=== PATIENT | female | born 1975 | race Two or more races ===

== ENCOUNTER 2016-11-25 18:11 | Inpatient (IN) | payer MEDICAID ==
[2016-11-25] MEDS ORDERED: IOPAMIDOL 300 (61%) 150 ML VIAL IV ONE (18:12)
[2016-11-25 20:15] LABS: SPECIFIC GRAVITY 1.015 (1.001-1.030); URINE BILIRUBIN NEGATIVE (NEGATIVE); URINE BLOOD 4+ (NEGATIVE); URINE GLUCOSE (UA) NEGATIVE (NEGATIVE); URINE LEUKOCYTE ESTERASE NEGATIVE (NEGATIVE); URINE NITRITE NEGATIVE (NEGATIVE); URINE PROTEIN NEGATIVE (NEGATIVE); URINE UROBILINOGEN NORMAL (0-1 mg/dl)
[2016-11-25 20:17] LABS: URINE APPEARANCE CLEAR; URINE COLOR STRAW
[2016-11-25 20:18] LABS: HCG,QUALITATIVE URINE NEGATIVE
[2016-11-25 20:21] LABS: URINE BACTERIA 0; URINE EPITHELIAL CELLS FEW /hpf; URINE RBC 30-40 /hpf; URINE WBC 0-1 /hpf
[2016-11-25] MEDS ORDERED: LACTATED RINGERS 1,000 ML ONE (20:34)
[2016-11-25] MEDS ORDERED: MORPHINE SULFATE 4 MG/ML SYRINGE ONE (20:34)
[2016-11-25 20:35] LABS: ABSOLUTE NEUTROPHIL COUNT 4.2 K/mm3 (1.8-7.7); BASO % 0.4 % (0.2-1.0); EOS # 0.1 (0.0-0.5); EOS % 1.7 % (0.9-2.9); HEMATOCRIT 26.9 % (37.0-47.0); HEMOGLOBIN 7.2 gm/l (12.0-16.0); IMM NEUT% 0.1 % (0-1); LYMPH # 2.8 (1.0-4.8); LYMPH % 37.3 % (15-45); MEAN CELL VOLUME 67.1 fl (81.0-99.0); MEAN CORPUSCULAR HGB CONC 26.8 g/dl (33.0-37.0); MEAN PLATELET VOLUME 9.1 fl (7.4-10.4); MONO # 0.3 (0.0-0.8); MONO % 4.4 % (4-12); NEUT % 56.1 % (43-75); PLATELET COUNT 479 K/mm3 (130-400); RED CELL DISTRIBUTION WIDTH 20.9 % (11.5-14.5)
[2016-11-25 20:52] LABS: ALB/GLOB RATIO 1.6 (>1.0); ALBUMIN 4.5 gm/dL (3.5-5.7); CALCIUM 9.5 mg/dL (8.6-10.3)
[2016-11-25 21:05] LABS: HYPOCHROMIA 1+; PLATELET ESTIMATE INCREASED (NORMAL)
--- NOTE | 2016-11-25 21:21 | CT ---
ABD/PELVIS W/ CON COMPARISON: None. HISTORY: Left lower quadrant pain with dysuria and hematuria. Recently diagnosed with uterine tumor. Technique: Intravenous injection contrast 125 mL Isovue 300. Using a [employer] Aquilion [address] scanner, images were obtained from the diaphragm to the floor the pelvis. An automated dose reduction technique was used to minimize patient radiation dose. Dose information: CTDIvol (mGy): 7.10 DLP(mGycm): 359.9 FINDINGS: Lung bases: Normal. Inferior mediastinum and heart: Normal. Liver: Normal. Gallbladder:Normal. Bile ducts: Normal. Pancreas: Normal. Spleen: Normal. Adrenal glands: Normal. Kidneys: Normal. Ureters: Normal Urinary bladder: Normal. Uterus and adnexa: Enlarged. Centrally located heterogeneously enhancing mass, 8.2 cm transverse by 6.7 cm anterior posterior by 7.6 cm craniocaudal. Blood vessels: Normal Lymph nodes: Normal Stomach: Normal Duodenum: Normal Small intestine: Normal Appendix: Normal Colon: Normal Abdominal wall and supporting musculature: Normal Bones: Normal IMPRESSION: 1. The uterus is enlarged by an 8.2 x 6.7 x 7.6 cm solid mass located centrally. Differential diagnosis giant leiomyoma versus sarcoma versus endometrial carcinoma. The report was sent to the emergency department operative medical record system 11/25/2016 at 21:22
[2016-11-25 21:28] LABS: INR 0.93; PROTHROMBIN TIME 9.8 SECONDS (9.3-11.4)
[2016-11-25] MEDS ORDERED: SODIUM CHLORIDE 0.9% 500 ML ONE (22:38)
[2016-11-25] MEDS ORDERED: BLOOD Y PLUMSET W/CASSETTE ONE (22:38)
[2016-11-25] MEDS ORDERED: SODIUM CHLORIDE 0.9% FLUSH 10 ML ONE (22:39)
[2016-11-25 23:18] VITALS: BMI 31.1
[2016-11-26] MEDS ORDERED: MAGNESIUM HYDROXIDE 30 ML UDCUP PO PRN (00:07)
[2016-11-26] MEDS ORDERED: ONDANSETRON 4 MG ODT TAB PO PRN (00:07)
[2016-11-26] MEDS ORDERED: MAG HYDROX/AL HYDROX/SIMETH 30 ML UDCUP PO PRN (00:07)
[2016-11-26] MEDS ORDERED: DIPHENHYDRAMINE HCL 25 MG CAPSULE PO PRN (00:07)
[2016-11-26] MEDS ORDERED: ACETAMINOPHEN 325 MG TABLET PO PRN (00:07)
[2016-11-26] MEDS ORDERED: DOCUSATE SODIUM 100 MG CAPSULE PO PRN (00:07)
[2016-11-26] MEDS ORDERED: BLISTEX LIPSTICK 1 EACH TP PRN (00:07)
[2016-11-26] MEDS ORDERED: MENTHOL/CETYLPYRD 1 EACH LOZENGE PO PRN (00:07)
[2016-11-26] MEDS ORDERED: MAGNESIUM HYDROXIDE/AL HYDROX 30 ML UDCUP PO PRN (00:07)
[2016-11-26] MEDS: IBUPROFEN 800 MG TABLET PO SCH ×2 (00:53→07:21)
[2016-11-26] MEDS: ESTROGENS CONJUGATED IV SCH ×2 (02:42→07:20)
[2016-11-26 07:34] LABS: HEMATOCRIT 32.7 % (37.0-47.0); HEMOGLOBIN 9.4 gm/l (12.0-16.0); MEAN CELL VOLUME 71.6 fl (81.0-99.0); MEAN CORPUSCULAR HEMOGLOBIN 20.6 pg (27.0-31.0); MEAN CORPUSCULAR HGB CONC 28.7 g/dl (33.0-37.0); RED CELL DISTRIBUTION WIDTH 22.2 % (11.5-14.5)
[2016-11-26 08:05] VITALS: BP 117/74
--- NOTE | 2016-11-26 08:40 | HP ---
Radha Noriega [id number] DATE OF ADMISSION: 11/25/2016 ADMISSION DIAGNOSES: 1. Anemia. 2. Fibroid uterus. HISTORY AND PHYSICAL: The patient is a 41-year-old female with history of heavy vaginal bleeding since March 2016. Patient states that she has regular periods monthly and these periods can last up to two weeks and have been heavy. Patient has been last having bleeding x2 weeks and therefore presented to the emergency department today. The patient had abdominal and pelvic CT scan performed which showed a enlarged uterus and adnexa. There is a centrally located heterogeneously enhancing mass 8.2 cm transverse by 6.7 cm anteroposterior by 7.6 cm craniocaudal. There is no lymphadenopathy or any other significant findings in this preliminary reading. The differential diagnosis include giant leiomyoma versus sarcoma versus endometrial carcinoma. Upon admission to the emergency room, patient was found to be anemic with a hemoglobin of 7.2, hematocrit of 26.9, MCV of 67.1. Patient states that she had previously been to [facility] for menorrhagia and had an ultrasound performed in July which did show enlarged uterus at that time. Patient was recommended for hysterectomy, however, subsequently did not have this done. 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 Patient has had five previous vaginal deliveries. PAST MEDICAL HISTORY: Patient denies any significant medical problems. PAST SURGICAL HISTORY: Negative. MEDICATIONS: Patient is currently not any medications. She denies ever having been given any medications for her menorrhagia. ALLERGIES: No known drug allergies. PHYSICAL EXAMINATION: VITAL SIGNS: Patient is afebrile with temp of 98.0, pulse is 67, blood pressure 158/93. GENERAL: Patient is alert and appropriate. She is in no apparent distress, however, generally she appears pale. HEART: Regular rate and rhythm. There is a slight S4. LUNGS: Clear to auscultation bilaterally. ABDOMEN: Nontender and nondistended. Patient does have palpable lower pelvic mass consistent with enlarged fibroid uterus. PELVIC: Patient has minimal menses upon admission. EXTREMITIES: Normal. ASSESSMENT AND PLAN: This is a 41-year-old female with anemia secondary to menorrhagia and fibroid uterus. Patient's currently being transfused 2 units of packed red blood cells. We will continue to follow her anemia. Will start iron therapy as well as IV Premarin. JOB: [id number]
[2016-11-26] MEDS ORDERED: FERROUS SULFATE (65 Fe) 325 MG TABLET PO SCH (09:00)
--- NOTE | 2016-11-26 09:24 | PDOC5 ---
Hospital Course: ADMIT DATE: 11/26/16 DISCHARGE DATE: 11/26/16 ADMISSION DIAGNOSES: anemia, fibroid uterus with menorrhagia PROCEDURES: Blood transfusion, IV premarin HISTORY OF PRESENT ILLNESS: 41 year old presenting with bleeding and Hgb of 7.2. HOSPITAL COURSE: The patient was given 2 units of prbc; her H/H is now 9.4/32.7% . She is feeling better but still tired. She was told at the [facility] that she needed a hysterectomy, but she could not afford it. We talked today about possible endometrial ablation, vs hysterectomy, risks/benefits. Since she has stabilized the plan is to complete her work-up as an outpt; she will need an endometrial biopsy; then get her scheduled for a possible surgery. By day of discharge the patient is ambulating, eating, voiding, and passing flatus without difficulty. Pain is controlled. - Objective General: Afebrile Lungs: Clear to Auscultation Bilaterally Cardiovascular: Regular Rate and Rhythm Abdomen: Soft, Non-Distended, Normal Bowel Sounds Genitourinary: Other (No bleeding per pt report) Skin: Warm, Dry, Other (Pt appears pale and tired.) Neurological: Grossly Intact Psych/Mental Status: Normal Affect - Discharge Diagnosis (1) Fibroid uterus Status: Acute (2) Menometrorrhagia Status: Acute Assessment/Plan: Hgb down to 7.2 on admission. Pt responded to IV premarin and received 2 units of prbc. - Discharge Plan Condition: Fair Disposition: Home Additional Instructions: Eat a healthy, well balanced diet with plenty of protein. Drink plenty of fluids. Prescriptions: Ibuprofen [IBUPROFEN 800 MG TABLET (SHF)] 800 mg PO Q6H #100 tablet FERROUS SULFATE (65 Fe) [IRON FERROUS SULFATE 325 MG TABLET (SHF)] 325 mg PO TID #100 tablet Medroxyprogesterone Acet [Provera] 10 mg PO DAILY #14 tab Follow-Up: Faheem Joseph MD [Staff Physician] - In 7-10 days
== END 2016-11-26 11:14 | disposition home or self-care (01) | DRG 812 ==
LOC: ED 18:11 → MS 21:58 → OBSVTOIN 11-26 00:07
PROVIDERS: ADMIT Obstetrics & Gynecology; ATTEND Obstetrics & Gynecology
PROC: 30233N1 Transfusion of Nonautologous Red Blood Cells into Peripheral Vein, Percutaneous Approach (ICD-10-PCS; principal; 2016-11-26)
DX: D64.9 Anemia, unspecified (principal); D25.9 Leiomyoma of uterus, unspecified; N92.1 Excessive and frequent menstruation with irregular cycle

== ENCOUNTER 2016-12-20 07:26 | Inpatient (IN) | payer MEDICAID ==
[2016-12-20] MEDS ORDERED: IV START KIT ONE (08:33)
[2016-12-20] MEDS ORDERED: CEFAZOLIN SODIUM 2 GRAM PREMIX 100 ML IV ONE (08:33)
[2016-12-20] MEDS ORDERED: LACTATED RINGERS 1,000 ML ONE (08:33)
[2016-12-20] MEDS ORDERED: PROPOFOL 20 ML IV ONE ×2 (10:25)
[2016-12-20] MEDS ORDERED: ONDANSETRON 4 MG/2ML 2 ML VIAL ONE (10:26)
[2016-12-20] MEDS ORDERED: LIDOCAINE 2% (MULTI DOSE) 10 ML VIAL ONE (10:26)
[2016-12-20] MEDS ORDERED: DIPHENHYDRAMINE HCL 50 MG/1 ML VIAL ONE (10:26)
[2016-12-20] MEDS ORDERED: DEXAMETHASONE SOD PHOS 4 MG/1 ML VIAL ONE (10:26)
[2016-12-20] MEDS ORDERED: MIDAZOLAM HCL 1 MG/ML 2ML VIAL ONE (10:31)
[2016-12-20] MEDS ORDERED: FENTANYL 100 MCG/2 ML VIAL ONE (10:31)
[2016-12-20] MEDS ORDERED: EPIDURAL PROCEDURE TRAY ONE (10:46)
[2016-12-20] MEDS ORDERED: MORPHINE SULFATE (DURAMORPH) 1 MG/ML 10ML AMP ONE (11:19)
[2016-12-20] MEDS ORDERED: MIDAZOLAM HCL 5 MG/5 ML VIAL ONE ×2 (11:28→11:38)
[2016-12-20] MEDS ORDERED: PROMETHAZINE HCL 25 MG/ML VIAL IM PRN (12:52)
[2016-12-20] MEDS ORDERED: KETOROLAC TROMETHAMINE 30 MG/ML 1 ML VIAL IV ONE (12:52)
[2016-12-20] MEDS ORDERED: MEPERIDINE 25 MG/ML SYRINGE IV PRN (12:52)
[2016-12-20] MEDS ORDERED: LABETALOL HCL 5 MG/ML 20ML VIAL IV PRN (12:52)
[2016-12-20] MEDS ORDERED: MORPHINE SULFATE 4 MG/ML SYRINGE IV PRN (12:52)
[2016-12-20] MEDS ORDERED: ATROPINE SULFATE 0.4 MG/1 ML VIAL IV PRN (12:52)
[2016-12-20] MEDS ORDERED: ONDANSETRON 4 MG/2ML 2 ML VIAL IV PRN ×2 (12:52→13:44)
[2016-12-20] MEDS ORDERED: NALOXONE HCL 0.4 MG/ML VIAL IV PRN ×2 (12:52→13:44)
[2016-12-20] MEDS ORDERED: LACTATED RINGERS 1,000 ML IV SCH (13:00)
[2016-12-20] MEDS ORDERED: KETOROLAC TROMETHAMINE 30 MG/ML 1 ML VIAL IV PRN (13:44)
[2016-12-20] MEDS ORDERED: DIPHENHYDRAMINE HCL 50 MG/1 ML VIAL IV PRN (13:44)
[2016-12-20] MEDS ORDERED: MAG HYDROX/AL HYDROX/SIMETH 30 ML UDCUP PO PRN (13:44)
[2016-12-20] MEDS ORDERED: EPHEDRINE SULFATE 50 MG/ML 1ML VIAL IV PRN (13:44)
[2016-12-20] MEDS ORDERED: BLISTEX LIPSTICK 1 EACH TP PRN (13:44)
[2016-12-20] MEDS ORDERED: MAGNESIUM HYDROXIDE/AL HYDROX 30 ML UDCUP PO PRN (13:44)
[2016-12-20] MEDS ORDERED: ACETAMINOPHEN 325 MG TABLET PO PRN (13:44)
[2016-12-20] MEDS ORDERED: KETOROLAC TROMETHAMINE 30 MG/ML 1 ML VIAL IV SCH (13:44)
[2016-12-20] MEDS ORDERED: MENTHOL/CETYLPYRD 1 EACH LOZENGE PO PRN (13:44)
[2016-12-20] MEDS ORDERED: DOCUSATE SODIUM 100 MG CAPSULE PO PRN (13:44)
[2016-12-20 15:24] VITALS: BMI 30.3
[2016-12-20] MEDS ORDERED: PUMP TUBING ONE (15:50)
[2016-12-20] MEDS: LACTATED RINGERS 1,000 ML IV SCH ×2 (15:55→23:48)
[2016-12-20] MEDS: MORPHINE SULFATE 2 MG/ML SYRINGE IV PRN ×3 (15:57→17:46)
[2016-12-20] MEDS: KETOROLAC TROMETHAMINE 30 MG/ML 1 ML VIAL IV SCH ×2 (16:02→22:39)
[2016-12-20] MEDS: OXYCODONE/ACETAMINOPHEN 5/325 MG TABLET PO PRN ×2 (17:46→23:48)
[2016-12-21] MEDS: KETOROLAC TROMETHAMINE 30 MG/ML 1 ML VIAL IV SCH (04:38)
[2016-12-21 06:11] LABS: HEMATOCRIT 28.8 % (37.0-47.0)
--- NOTE | 2016-12-21 06:43 | OP ---
GIANCARLO GILL [id number] : 1975 DATE OF OPERATION: December 20, 2016 PREOPERATIVE DIAGNOSIS: Uterine fibroids. POST OPERATIVE DIAGNOSIS: Uterine fibroids. PROCEDURE PERFORMED: Total abdominal hysterectomy. SURGEON: Julia Meng D.O. TOOTH POLISHER: Mitchell Parra M.D. ANESTHESIA: Spinal. FINDINGS: A large fibroid uterus. CONDITION: Stable. COMPLICATIONS: None. IV FLUIDS: 2000 mL of lactated Ringers. URINE OUTPUT: 100 mL. ESTIMATED BLOOD LOSS: 500 mL. SPECIMENS: Uterus and cervix. IMPLANTS: None. DRAINS: None. PROCEDURE: Patient was taken back to the operating room where spinal anesthesia was easily obtained. She was prepped and draped in a normal sterile fashion in a dorsal supine position. A Pfannenstiel skin incision was made. The incision was carried down to the fascia with a Bovie. The fascia was nicked in the midline and extended laterally. Two Tseven clamps were used to elevate the superior aspect of the fascia and the underlying rectus muscle was dissected off. In a similar fashion, two Steven clamps were used to elevate the inferior fascia and the underlying rectus and pyramidalis muscles were dissected off sharply. The rectus muscles were identified in the midline and . The abdominal peritoneum was identified and entered bluntly. The peritoneal incision was extended with lateral traction. A Virgilio retractor was placed in the abdominal cavity and moist sponges were used to pack the bowel away. Intraabdominal survey revealed a large fibroid uterus. The round ligaments were identified and incised using Metzenbaum scissors. The vesicouterine peritoneum was identified. The bladder reflection was revealed and cut using Metzenbaum scissors. The bladder flap was developed to keep the bladder out of the operative field. The utero-ovarian ligament was identified and clamps were placed. The utero-ovarian ligament was ligated and sutured off with #0 Vicryl suture. This was done bilaterally. The broad ligament was identified and suture ligated using #0 Vicryl suture bilaterally. The broad ligament was sequentially clamped, cut and tied with #0 Vicryl suture down to the level of the uterine artery which was identified and suture ligated bilaterally. The uterus was then delivered through the abdominal incision, and the pubocervical fascia was sequentially cut, clamped and tied until the vagina was entered. Konrad scissors were used to remove the uterus and cervix from the vagina, and the specimen was handed off. The vaginal cuff was grasped with Sharda clamps and closed with #0 Vicryl suture in a running locked fashion. At this point the pelvis was irrigated with warm sterile water. Several sites of bleeding were identified and controlled with #0 Vicryl suture and cautery. Once hemostasis was achieved, the pelvis was irrigated again with warm sterile water. Hemostasis was again identified and all instruments and sponges were removed from the abdomen. The fascia was closed with #0 looped PDS in a continuous running fashion. The subcutaneous tissue was reapproximated with #3-0 Vicryl, and the skin was closed with #4-0 V-LOC in a subcuticular fashion. All instrument, needle and sponge counts were reported to be correct times three. The patient was easily roused from anesthesia and transferred to post anesthesia care unit in stable condition.
[2016-12-21] MEDS: LACTATED RINGERS 1,000 ML IV SCH (07:58)
[2016-12-21] MEDS: OXYCODONE/ACETAMINOPHEN 5/325 MG TABLET PO PRN (07:59)
[2016-12-21 08:09] VITALS: BP 112/71
--- NOTE | 2016-12-21 10:04 | PDOC5 ---
Hospital Course: ADMIT DATE: 12/20/16 DISCHARGE DATE: [12/21/2016] ADMISSION DIAGNOSES: [uterine fibroids] PROCEDURES: [Total abdominal hysterectomy] HISTORY OF PRESENT ILLNESS: 41 year old presenting with [uterine fibroids and dysfunctional uterine bleeding requesting definitive management with a hysterectomy] HOSPITAL COURSE: The patient [presented 12/20/16 for her scheduled total abdominal hysterectomy. Her surgery was uncomplicated. Please see operative note for full details. She is eating without nausea or vomiting. Her pain is controlled. She expresses interest in going home today, if she passes flatus. She denies fever or chills, vaginal bleeding. She has bowel sounds. ] By day of discharge the patient is ambulating, eating, voiding, and passing flatus without difficulty. Pain is controlled. 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 Meng for 6 weeks from your surgery. Prescriptions: Oxycodone HCl/Acetaminophen [PERCOCET 5/325 MG TABLET (SHF)] 1 - 2 tab PO Q4H PRN #30 tab PRN Reason: Pain Discharge Medications: You may take up to 800 mg ibuprofen every 4-6 hours as needed for moderate pain. Follow-Up: Ca Meng DO [Staff Physician] -
[2016-12-21] MEDS ORDERED: IBUPROFEN 800 MG TABLET PO PRN (10:05)
[2016-12-21] MEDS ORDERED: OXYCODONE/ACETAMINOPHEN 5/325 MG TABLET PO PRN (13:45)
--- NOTE | 2016-12-24 12:13 | SURGPATH ---
[facility] [address] [place] [id number] Patient Name: GIANCARLO GILL MR#: [id number] : 1975 Gender: F Specimen #: [id number] Collected: 12/20/2016 Received: 12/23/2016 Reported: 12/24/2016 Submitting Phys: NAVEED DEL ROSARIO Copy To Phys: [facility] Clinical History / Pre-Operative Diagnosis: Uterine leiomyoma Specimen Source / Surgical Procedure Performed: Uterus with cervix Interpretation: UTERUS AND CERVIX, HYSTERECTOMY: - LEIOMYOMA - BENIGN SECRETORY ENDOMETRIUM - CERVIX WITH NO DIAGNOSTIC ABNORMALITY Electronically Signed Out Celine Syed M.D. Gross Description: The specimen is received in a formalin filled container labeled with the patient's name. A 933 g intact uterus and cervix is 15 x 11.5 x 10 cm. The serosa is smooth and chambers. The uterine corpus is enlarged and has a globoid appearance. The ectocervix is smooth and pale pink. The os and endocervical canal are patent. The endometrial cavity is distorted due to a large bulging, well circumscribed, whorled chambers submucosal/intramural nodule, 8.5 x 8.0 x 7 cm. The endometrium is flat, chambers and 0.2 cm. The dense chambers myometrium averages 1.5 cm and is without additional nodules. Summary of sections: A-serosa B-anterior and posterior cervix C and D-posterior endomyometrium E-anterior endometrium with adjacent large submucosal nodule E-[id number] sections of submucosal/intramural nodule Zeke Nunez Microscopic Description: Sections from the serosal surface are unremarkable. The cervix is free of dysplasia. There is secretory endometrium without hyperplasia or neoplasia. The myometrium contains a nodule of benign smooth muscle. 1: [id number] D25.1
== END 2016-12-21 11:21 | disposition home or self-care (01) | DRG 743 ==
LOC: OR 07:41 → MS 14:17
PROVIDERS: ADMIT Obstetrics & Gynecology; ATTEND Obstetrics & Gynecology
PROC: 0UT90ZZ Resection of Uterus, Open Approach (ICD-10-PCS; principal; 2016-12-20)
PROC: 0UTC0ZZ Resection of Cervix, Open Approach (ICD-10-PCS; 2016-12-20)
DX: D25.1 Intramural leiomyoma of uterus (principal); N93.8 Other specified abnormal uterine and vaginal bleeding